=== PATIENT | female | born 1990 | race Caucasian/White ===

== ENCOUNTER 2017-12-13 11:53 | Day surgery (SDC) | payer BC, SELFPAY ==
[2017-12-13] VITALS (8 sets, daily range): BP systolic 114–124; BP diastolic 58–70; PULSE 66–95; RESP 16; TEMP 36.6–36.9; O2SAT 95–100; BMI 25.0
[2017-12-13 12:23] LABS: Internal QC Validated? YES +Cl - CLEAR BKGD; Pregnancy, Urine Negative Negative
--- NOTE | 2017-12-13 13:40 | MISC_PTH ---
PATIENT: ISRAEL MENDIOLA LOC: [facility] [place] U#:[id number] AGE/SX: 27/F ROOM: RE12/13/[address]: Medardo Hoff DO : 1990 BED: DIS: 12/13/2017 SPEC #: [id number] RECD: 12/13/17 16:21 STATUS: BAILEE IRINA #: [id number] DANNA: 12/13/17 13:[address]: Medardo Hoff DEPT: SURGICAL PATHOLOGY RECD BY: Juan Ambrosio ENTERED: 12/14/17 09:55 SP TYPE: [facility] [place] DR: Dr. Lucie Islas MD Tissues: Bony tissue, NOS Procedures: Decalcification bone/plaque Surgery Specimen Level IV HEADER OPERATION: Arthroscopy, knee, patella ossicle excision with primary repair PRE-OP DIAGNOSIS: Bipartite patella; chronic pain of left knee TISSUE SUBMITTED: Left patella ossicle MICROSCOPIC DIAGNOSIS Left patella ossicle, excision: Fragment of osseocartilaginous tissue with reactive and reparative change and delamination of cartilaginous surface. AM:marquis 12/19/17 MICROSCOPIC DESCRIPTION Slides are reviewed. GROSS DESCRIPTION Received in fixative is one container labeled with the patient's name and designated left patellar ossicle. The specimen consists of a piece of bone measuring 1.5 x 1 x 0.8 cm. The specimen is serially sectioned and submitted entirely in one cassette after decalcification. / SJ:marquis 12/14/17 TC:5 [facility]: [id number], [id number]
[2017-12-13] MEDS: Cefazolin 2 GM in 0.9% Normal Saline 100 ML IV (14:37)
--- NOTE | 2017-12-13 15:13 | RAD_ITS ---
STUDY: X-RAY - LEFT KNEE REASON FOR EXAM: Female, 27 years old. Left knee arthroscopy. TECHNIQUE: 2 coned-down view(s) of the knee were obtained intraoperatively. COMPARISON: None. FINDINGS: Imaging provided for arthroscopy. RAD/Knee 1 or 2 Views IMPRESSION: Imaging provided for arthroscopy. Electronically Signed: Pranav Arellano MD at 8:08 EDT Tel [phone], Service support ,
--- NOTE | 2017-12-13 16:14 | OP.PN_ITS ---
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
--- NOTE | 2017-12-13 16:14 | PCM.OPRPT ---
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 Patient had a CT examination and MRI that showed her to have a symptomatic patella ossicle. The MRI showed edema around the ossicle indicative of its synchondrosis nature and to contribute factor to her knee pain. Having failed conservative measures patient elected for operative intervention. She was counseled consented for the aforementioned procedure. She is met in the holding area where the left lower extremity was marked and identified by the with surgeon. Patient was taken the operating room in satisfactory condition with somewhat to place to identify patient operative procedure and limb. Patient received 2 g of Ancef. She had a well-placed tourniquet left proximal thigh. Patient was then prepped and draped in the usual fashion. Left lower extremity was elevated Esmarch used for exsanguination and tourniquet was increased to 250 mmHg for roughly 55 minutes. Initial diagnostic scope was undertaken. Anterolateral portal was established and we entered in the suprasellar pouch. There is no return effusion. Patient otherwise had a normal medial and central patellar facets. She had a ballotable and mobile area across the lateral patellar facet indicative of her symptomatically mobile os patella. Trochlea was free of chondromalacia. There is no loose bodies in the posterior lateral corner. Moving the medial compartment established anteromedial portal. The medial femoral condyle and menisci was pristine. The patient had a small fissure formation within the medial tibial plateau but really only 1 mm or so deep. Otherwise stable upon probing. Patient had a pristine ACL and PCL. Lateral compartment was otherwise free of any meniscal or cartilage pathology. The popliteal hiatus was normal. At that point time the scope was retracted and we began the open procedure. Patient had about a 2-1/2-3 cm incision made along the lateral aspect of the patella. In full-thickness dimensions the quad tendon fascia as it blended into the superior portion of the patella moving down to the inferior patellar tendon was released in a subperiosteal type fashion. This was done in anticipation of creating a full-thickness repair. At that point time moving around in full-thickness fashion as well the most distal edge of the vastus lateralis was released across the patella as we moved around towards the capsular margin. The capsule was not initially opened. The periosteum was thickened as expected in a young patient and gross mobility of the fracture site cannot be easily seen. It did appear to be mobile but the overall edge formation was difficult to encounter. At that point time I brought in C-arm visualization to aid with visualization in the AP plane. We able to see the remaining and anterior and bluntly around the edges. At that point time we can continued our blunt dissection down to the synchondrosis resecting out the os patellae and circumferential pattern. The left is much of the cartilage on the inferior border intact intra-articularly as possible. At that point time the wound was copiously irrigated and the soft tissues were reapproximated with 0 Vicryl using [id number] technique. Skin was reapproximated 2-0 Vicryl running subicular Monocryl and then dressed with Steri-Strips. Portal sites are closed with 3-0 nylon using simple suture technique. Patient was then placed a compressive wrap. We then took one final C-arm visualization with the patella lateralized showing the resection site. Continued bulky dressing was then applied. Tourniquet was had been let down during closing procedure. I was scrubbed and available time during our procedure. We had no drains or complications no implants. Patient will be weightbearing as tolerated which range of motion limited to 0-90 for about 2 weeks and then will eat really range of motion as tolerated. Any major issues please contact me. strategic planning manager: None Specimen's removed: Patella ossicle Estimated Blood Loss (mL): 10
--- NOTE | 2017-12-13 16:19 | PCM.DC.ORTHO ---
Discharge Activity: Return to Normal Activity, May not drive while taking narcotic pain medications., May Shower, Use Crutches, - - Weightbearing as tolerated. Range of motion 0-90?. May shower in (days): 2 May resume sexual activity in: No Restrictions Ice area for (Minutes): 20 Weight Bearing Status: Weight bearing as tolerated Keep extremity elevated above heart level: Left Leg Call your doctor if your incision/area has: Continuous Slow Oozing, Sudden Increased Bleeding, Increased Pain/ Swelling, Increased Redness, Foul Smelling Discharge, Swelling at the incision site Call your doctor if you observe: Fever of 101 or Higher, Coldness, Increased Pain, Numbness or Tingling, Change in Color, Inability to urinate, Inability to have a bowel movement, Using more than one pad per hour, Shortness of breath, Dizziness, Fainting spells, Swelling in the ankles, Chest pain, Prolonged hiccoughing, Increased palpitations (irregular heartbeat), Calf discomfort, Uncontrolled pain Suture Line Care: Avoid Pulling/Pushing, Avoid Pinching/Bending Change Dressing in (Days):: 2 Remove Dressing in (days):: 2 Cleanse incision/area with: Soap & Water Additional Dressing/Incision Instructions:: Shower in 48 hours. Do not submerge wound. Replace dressing as needed. Replace Jairon wrap to aid with swelling. Allergies/Adverse Reactions: Allergies No Known Allergies Allergy (Verified 12/06/17 08:51) Medications to take at Discharge Norethindrone-E.estradiol-Iron [Loestrin Fe 1.5-30 Tablet] 1 each PO DAILY 12/06/17 Venlafaxine HCl [Effexor Xr] 75 mg PO DAILY 12/06/17 Cephalexin [Keflex] 500 mg PO Q12 #10 cap 12/13/17 Docusate Sodium [Colace] 100 mg PO BID PRN PRN #10 cap 12/13/17 Hydrocodone Bitart/Apap 5-325 [[place] 5/325] 1 - 2 tablet PO Q6H PRN PRN #60 tablet 12/13/17 ProMETHAzine [Phenergan] 25 mg PO Q4H PRN PRN #10 tab 12/13/17 The following prescriptions were given: ProMETHAzine [Phenergan] 25 mg PO Q4H PRN PRN #10 tab PRN Reason: Nausea Hydrocodone Bitart/Apap 5-325 [[place] 5/325] 1 - 2 tablet PO Q6H PRN PRN #60 tablet PRN Reason: Pain Cephalexin [Keflex] 500 mg PO Q12 #10 cap Docusate Sodium [Colace] 100 mg PO BID PRN PRN #10 cap PRN Reason: Constipation Primary Care Physician: Lucie Islas [Primary Care Provider] - Please Follow Up With: Medardo Hoff DO When: CALL [facility] FOR APPT FOR 2 WEEKS Proposed Discharge Date: 12/13/17
[2017-12-13] MEDS: HYDROcodone Bitartrate/Apap 5/325 Tablet PO (17:39)
== END 2017-12-13 18:45 | disposition home or self-care (01) ==
LOC: SDC 11:55 → AC 11:57
PROVIDERS: Anesthesiology; Visit Provider Orthopaedic Surgery
PROC: (CPT 29870; principal; 2017-12-13 13:20)
DX: Q74.1 Congenital malformation of knee (principal); M94.262 Chondromalacia, left knee; G89.29 Other chronic pain; I49.9 Cardiac arrhythmia, unspecified; Z79.82 Long term (current) use of aspirin; Z79.899 Other long term (current) drug therapy
CPT/HCPCS: 01392; 27350; 29870; 73560; 76000; 81025; 88304; 88305; 88311; J3010; J7120; J2405